=== PATIENT | male | born 1990 | race Caucasian/White ===

== ENCOUNTER 2016-06-26 19:30 | Emergency (ER) | payer OTHER ==
[~2016-06-26] VITALS: Ht 172.7 cm; Wt 100.0 kg
[~2016-06-26 19:30] MED LIST: NOCURR
[2016-06-26 19:45] VITALS: BP 137/94
== END 2016-06-26 22:00 | disposition left against medical advice (07) ==
LOC: EMS 19:32
DX: J02.9 Acute pharyngitis, unspecified (principal); Z53.21 Procedure and treatment not carried out due to patient leaving prior to being seen by health care provider

== ENCOUNTER 2017-01-14 20:23 | Emergency (ER) | payer SELFPAY ==
[~2017-01-14] VITALS: Ht 172.7 cm; Wt 103.6 kg
[2017-01-14] MEDS ORDERED: KETOROLAC TROMETHAMINE 30 MG/ML VIAL IM ONE (20:45)
[2017-01-14 21:14] VITALS: BP 135/72
== END 2017-01-14 21:22 | disposition home or self-care (01) ==
LOC: EMS 20:24
DX: S29.011A Strain of muscle and tendon of front wall of thorax, initial encounter (principal); X58.XXXA Exposure to other specified factors, initial encounter; Y93.89 Activity, other specified; Y92.89 Other specified places as the place of occurrence of the external cause; Y99.8 Other external cause status; F17.210 Nicotine dependence, cigarettes, uncomplicated
CPT/HCPCS: 93005; 96372; 99283; 99406; J1885

== ENCOUNTER 2017-02-14 23:01 | Emergency (ER) | payer SELFPAY ==
[~2017-02-14] VITALS: Ht 180.3 cm; Wt 104.5 kg
[2017-02-15 00:06] LABS: APPEARANCE,URINE CLEAR (CLEAR); GLUCOSE, URINE (UA) NEGATIVE (NEGATIVE); KETONES,URINE NEGATIVE (NEGATIVE); LEUKOCYTE ESTERASE ,URINE NEGATIVE (NEGATIVE); OCCULT BLOOD,URINE NEGATIVE (NEGATIVE); PH,URINE 5.5 (5.0-8.0); PROTEIN,URINE TRACE (NEGATIVE)
[2017-02-15 00:11] LABS: ADD UA MICROSCOPIC NO
[2017-02-15] MEDS ORDERED: CefTRIAXone SODIUM 1 GM/VIAL IM ONE (01:15)
[2017-02-15] MEDS ORDERED: AZITHROMYCIN 250 MG TABLET PO ONE (01:15)
[2017-02-15 01:31] VITALS: BP 131/80
[2017-02-17 03:06] LABS: GC DNA N.A. AMPLIFY Negative (Negative)
== END 2017-02-15 01:34 | disposition home or self-care (01) ==
LOC: EMS 23:03
DX: N34.2 Other urethritis (principal); F17.210 Nicotine dependence, cigarettes, uncomplicated
CPT/HCPCS: 81003; 87491; 87591; 96372; 99284; 99406; J0696

== ENCOUNTER 2020-09-19 11:07 | Emergency (ER) | payer MEDICAID, OTHER ==
[~2020-09-19] VITALS: Ht 172.7 cm; Wt 118.2 kg
[2020-09-19 11:39] LABS: BASOPHILS % (AUTO) 0.5 % (0.0-2.0); EOSINOPHILS % (AUTO) 0.9 % (1.0-6.0); HEMATOCRIT 47.9 % (41-53); HEMOGLOBIN 16.4 g/dL (13.5-17.5); LYMPHOCYTES # (AUTO) 2.3 K/uL (1.0-4.8); LYMPHOCYTES % (AUTO) 33.9 % (22.0-44.0); MEAN CORPUSCULAR HEMOGLOBIN 31.6 pg (26.0-34.0); MEAN CORPUSCULAR HGB CONC 34.2 G/dL (31.0-37.0); MEAN CORPUSCULAR VOLUME 92 fL (80-100); MONOCYTES # (AUTO) 0.4 K/uL (0.1-1.0); MONOCYTES % (AUTO) 5.7 % (2.0-9.0); PLATELET COUNT (AUTO) 212 K/uL (150-450); RED BLOOD CELL COUNT(AUTO) 5.19 MIL/uL (4.50-5.90); RED CELL DISTRIBUTION WIDTH 12.6 % (11.5-14.5)
[2020-09-19 11:50] LABS: ANION GAP 9 mmol/L (8-16); CARBON DIOXIDE 28 mmol/L (22-29); CHLORIDE 104 mmol/L (98-107); CREATININE 0.82 mg/dL (0.60-1.30); GLOMERULAR FILTR. RATE CALC > 60 mL/min (>60); GLUCOSE,RANDOM 135 mg/dL (70-110); SODIUM SERUM 141 mmol/L (136-145); UREA NITROGEN, BLOOD 14 mg/dL (7-18)
[2020-09-19 12:02] LABS: ALANINE AMINOTRANSFERASE 73 U/L (12-78); ALBUMIN 4.1 g/dL (3.4-5.0); ALKALINE PHOSPHATASE 82 U/L (46-116); ASPARTATE AMINOTRANSFERASE 34 U/L (15-37); BILIRUBIN,TOTAL 0.5 mg/dL (0.1-1.0); TOTAL PROTEIN, SERUM 7.7 g/dL (6.4-8.2)
[2020-09-19 13:31] VITALS: BP 138/76
== END 2020-09-19 13:31 | disposition home or self-care (01) ==
LOC: EMS 11:14
DX: R07.89 Other chest pain (principal); R00.2 Palpitations; R06.02 Shortness of breath
CPT/HCPCS: 71045; 80053; 83880; 84484; 85025; 93005; 99285; 36415-L1; 36415-TC

== ENCOUNTER 2020-11-02 21:33 | Emergency (ER) | payer MEDICAID ==
[~2020-11-02] VITALS: Ht 170.2 cm; Wt 127.3 kg
[2020-11-02 21:52] VITALS: BP 121/98
== END 2020-11-03 00:07 | disposition left against medical advice (07) ==
LOC: EMS 21:34
DX: F41.9 Anxiety disorder, unspecified (principal); Z53.21 Procedure and treatment not carried out due to patient leaving prior to being seen by health care provider
CPT/HCPCS: 93005

== ENCOUNTER 2022-03-12 13:22 | Emergency (ER) | payer MEDICAID, OTHER ==
[~2022-03-12] VITALS: Ht 177.8 cm; Wt 125.9 kg
[2022-03-12] MEDS ORDERED: IBUP-1492 PO (16:17)
[2022-03-12 16:29] VITALS: BP 132/82
== END 2022-03-12 17:00 | disposition home or self-care (01) ==
LOC: EMS 13:30
DX: M25.511 Pain in right shoulder (principal); F41.9 Anxiety disorder, unspecified; E78.00 Pure hypercholesterolemia, unspecified
CPT/HCPCS: 99282; Z7502